=== PATIENT | female | born 1990 | race Two or more races ===

== ENCOUNTER 2017-01-27 16:15 | Emergency (ER) | payer MEDICAID, SELFPAY ==
[~2017-01-27] VITALS: Ht 162.6 cm; Wt 116.4 kg
[2017-01-27 16:19] VITALS: BP 119/86
== END 2017-01-27 17:50 | disposition home or self-care (01) ==
LOC: ED 17:44
DX: T40.2X1A Poisoning by other opioids, accidental (unintentional), initial encounter (principal); T56.891A Toxic effect of other metals, accidental (unintentional), initial encounter; T49.7X1A Poisoning by dental drugs, topically applied, accidental (unintentional), initial encounter; G89.29 Other chronic pain; M54.9 Dorsalgia, unspecified; F31.9 Bipolar disorder, unspecified; Y92.89 Other specified places as the place of occurrence of the external cause
CPT/HCPCS: 99281

== ENCOUNTER 2017-09-06 13:43 | Outpatient (CLI) | payer MEDICAID ==
[~2017-09-06] VITALS: Ht 162.6 cm; Wt 113.6 kg
[2017-09-06 13:55] VITALS: BP 105/65
[2017-09-06 15:44] LABS: BASOPHILS # (AUTO) 0.05 x10^3/uL (0-0.1); BASOPHILS % (AUTO) 1 % (0-1); EOSINOPHILS # (AUTO) 0.03 x10^3/uL (0-0.4); EOSINOPHILS % (AUTO) 0 % (1-7); LYMPHOCYTES % (AUTO) 22 % (22-44); MD NO; MEAN CORPUSCULAR HEMOGLOBIN 31.9 pg (27.0-34.8); MEAN CORPUSCULAR HGB CONC 34.3 g/dL (32.4-35.8); MEAN CORPUSCULAR VOLUME 92.9 fL (80-100); MEAN PLATELET VOLUME 9.6 fL (7.4-10.4); MONOCYTES % (AUTO) 7 % (2-9); NEUTROPHILS # (AUTO) 7.39 x10^3/uL (1.8-6.8); NEUTROPHILS % (AUTO) 71 % (42-75); PLATELET COUNT 295 x10^3/uL (130-400); RED BLOOD COUNT 3.77 x10^6/uL (3.82-5.3); RED CELL DISTRIBUTION WIDTH 13.7 % (9.6-15.2)
[2017-09-06 15:56] LABS: ALBUMIN 2.3 g/dL (3.4-5.0); ANION GAP 10 mmol/L (5-15); CALCIUM 8.5 mg/dL (8.5-10.1); CHLORIDE 112 mmol/L (98-107)
[2017-09-06 15:59] LABS: ALANINE AMINOTRANSFERASE 13 U/L (12-78); ALKALINE PHOSPHATASE 139 U/L (45-117); BILIRUBIN,TOTAL 0.3 mg/dL (0.2-1.0); CREATININE 0.75 mg/dL (0.55-1.02); TOTAL PROTEIN 6.7 g/dL (6.4-8.2)
[2017-09-06 16:30] LABS: MICROSCOPIC INDICATED
[2017-09-06] MEDS ORDERED: NITR100C56 PO (17:07)
[2017-09-06] MEDS ORDERED: PREN-13 PO (17:08)
== END 2017-09-06 17:27 | disposition home or self-care (01) ==
LOC: LDOP 13:43
PROVIDERS: ATTEND Obstetrics & Gynecology
DX: O26.893 Other specified pregnancy related conditions, third trimester (principal); Z3A.00 Weeks of gestation of pregnancy not specified
CPT/HCPCS: 36415; 59025; 76819; 80053; 81001; 85025; 87086; 99201; 99211; G0463

== ENCOUNTER 2018-09-03 09:04 | Emergency (ER) | payer MEDICAID ==
[~2018-09-03] VITALS: Ht 160 cm; Wt 117.0 kg
[~2018-09-03 09:04] MED LIST: DOCU-131 PO; IBUP-1222 PO; NITR100C56 PO; OXYC-302 PO; PREN-13 PO
[2018-09-03 09:08] VITALS: BP 125/85
[2018-09-03] MEDS ORDERED: KETOROLAC 30 MG/1 ML IM ONE (09:30)
[2018-09-03] MEDS ORDERED: DIAZEPAM 5 MG TABLET PO ONE ×2 (09:30→10:30)
[2018-09-03] MEDS ORDERED: OXYcodone/APAP 5/325MG TABLET PO ONE (09:30)
--- NOTE | 2018-09-03 09:32 | NUR ---
PT TO CT W TECH
[2018-09-03] MEDS ORDERED: KETOROLAC 30 MG/1 ML ONE (09:34)
[2018-09-03] MEDS ORDERED: DIAZEPAM 5 MG TABLET ONE ×2 (09:34→10:27)
[2018-09-03] MEDS ORDERED: OXYcodone/APAP 5/325MG TABLET ONE (09:34)
--- NOTE | 2018-09-03 10:24 | NUR ---
pt resting comfortably on giovanna payne. significant relief from chief medical director. we qare awaiting an md to recheck for further dispo.
== END 2018-09-03 11:22 | disposition home or self-care (01) ==
LOC: ED 09:26
DX: S46.811A Strain of other muscles, fascia and tendons at shoulder and upper arm level, right arm, initial encounter (principal); X58.XXXA Exposure to other specified factors, initial encounter; Y93.89 Activity, other specified; Y92.89 Other specified places as the place of occurrence of the external cause; Y99.8 Other external cause status
CPT/HCPCS: 72050; 73030; 96372; 99284; J1885

== ENCOUNTER → 2019-05-28 | Outpatient (CLI) | payer MEDICAID | END | disposition home or self-care (01) | LOC: RAD 08:09 | PROVIDERS: ATTEND Surgery | CPT/HCPCS: 74247 ==